=== PATIENT | female | born 2000 | race Caucasian/White ===

== ENCOUNTER 2021-08-20 10:52 | Observation (INO) ==
--- NOTE | 2021-08-15 09:42 | Anesthesiology Consultation ---
Date of Service August 15, 2021 Assessment & Plan (1) Encounter for pre-operative examination: Chart Review Chart Review: Acceptable Risk for Surgery (pending preop Covid testing results ) and Patient NOT seen in Pre Admission Testing - Check test AM DOS Per nursing assessment 08/15/2021, patient denies any recent travel. No known COVID infection in the past 90 days. Patient is not vaccinated for COVID. No known Covid positive exposures or Covid related symptoms. Preop Covid testing scheduled 08/18/21= will await results History Surgery Operation Date: 08/20/21 09:20 Proposed Procedures p Laparoscopic Cholecystectomy, Possible Cholangiogram - Wally Garcia, DO, FACS Height/Weight Height: 5 ft 6 in Weight: 72.575 kg Allergies Allergy/AdvReac Type Severity Reaction Status Date / Time No Known Allergies Allergy Verified 08/15/21 09:18 Medications Home Medications Medication Instructions Recorded Confirmed Last Taken lamotrigine 100 mg tablet 100 mg PO QAM 08/07/21 08/15/21 Unknown Past Medical History Medical History ADHD Anxiety and depression Bipolar disorder Cholelithiasis Past Family History Family History Father Hypertension Mother Diabetes Grandfather Colorectal cancer Past Surgical History Surgical History Family history of reaction to anesthesia MOTHER>SLOW TO WAKE UP No history of previous surgery Social History Smoking Status: Current every day smoker tobacco type: cigarettes Smoking cigarettes per day: 15-20 CIG DAILY *ADVISED Hx Alcohol Use: Yes Alcohol type: beer, wine and hard liquor alcohol intake frequency: a few times a week Hx Substance Use: Yes substance use type: marijuana Last Used Substance Other:: LAST NIGHT *ADVISED
[~2021-08-20 10:52] MED LIST: DEXAMETHASONE SOD INJ 4 MG/ML VIAL ONE; LACTATED RINGER'S 1,000 ML IV SCH; MIDAZOLAM HCL 1 MG/ML 2ML VIAL ONE; ONDANSETRON INJ 2 MG/ML 2 ML VIAL ONE; PROPOFOL IV EMULSION 10 MG/ML 20 ML VIAL IV ONE; ROCURONIUM BROMIDE 10 MG/ML 5 ML VIAL IV ONE; cefOXitin 2,000 MG in DEXTROSE 5% 50 ML IV SCH; fentaNYL citrate 100 MCG/2 ML VIAL ONE
[2021-08-20] MEDS ORDERED: PROPOFOL IV EMULSION 10 MG/ML 20 ML VIAL IV ONE ×2 (11:37→14:34)
[2021-08-20] MEDS ORDERED: fentaNYL citrate 100 MCG/2 ML VIAL ONE ×2 (11:37→14:34)
[2021-08-20] MEDS ORDERED: ONDANSETRON INJ 2 MG/ML 2 ML VIAL ONE ×2 (11:37→14:35)
[2021-08-20] MEDS ORDERED: DEXAMETHASONE SOD INJ 4 MG/ML VIAL ONE ×2 (11:37→14:35)
[2021-08-20] MEDS ORDERED: MIDAZOLAM HCL 1 MG/ML 2ML VIAL ONE ×2 (11:37→14:34)
[2021-08-20] MEDS ORDERED: NEOSTIGMINE METHYLSULFATE 1 MG/ML 10ML VIAL ONE ×2 (11:37→16:45)
[2021-08-20] MEDS ORDERED: GLYCOPYRROLATE 0.2 MG/ML VIAL ONE ×2 (11:37→16:45)
[2021-08-20] MEDS ORDERED: ROCURONIUM BROMIDE 10 MG/ML 5 ML VIAL IV ONE (11:37)
--- NOTE | 2021-08-20 11:39 | History & Physical Bridge Note ---
Date of Service August 20, 2021 History & Physical Bridge Note I have examined the patient, reviewed the History & Physical and in the interval since the performance of the History & Physical I have noted the following changes of clinical significance: no changes noted
[2021-08-20] MEDS ORDERED: BUPIVACAINE 0.5 % 5 MG/1 ML MPF 30ML VIAL ONE (12:14)
[2021-08-20] MEDS ORDERED: ATROPINE SULFATE 0.1 MG/ML 10ML SYR IV PRN (13:45)
[2021-08-20] MEDS ORDERED: ePHEDrine sulfate 50 MG/ML AMP IV PRN (13:45)
[2021-08-20] MEDS ORDERED: ONDANSETRON INJ 2 MG/ML 2 ML VIAL IV PRN ×2 (13:45→15:37)
[2021-08-20] MEDS ORDERED: LIDOCAINE 2% 2 ML VIAL/AMP(20MG/ML) INFIL ONE (14:34)
[2021-08-20] MEDS ORDERED: oxyCODONE/ACETAMINOPHEN 5mg/325mg TAB PO PRN (15:37)
[2021-08-20] MEDS ORDERED: MoRPHine SULFATE 4 MG/ML 1 ML CARP\\VIAL IV PRN (15:37)
[2021-08-20] MEDS ORDERED: MoRPHine SULFATE 2 MG/ML CARP IV PRN (15:37)
[2021-08-20] MEDS ORDERED: SODIUM CHLORIDE 0.9% 1000ML 1,000 ML IV SCH (15:45)
--- NOTE | 2021-08-20 17:04 | Operative Report ---
PG Post Operative Report Pre & Post Diagnosis Operation Date: 08/20/21 08:35 Pre-Op Diagnosis: Cholelithiasis Post-Op Diagnosis: Cholelithiasis, acute on chronic cholecystitis I identified the patient and participated in the time-out.: Yes Procedure Operation Date: 08/20/21 08:35 Actual Procedures p Laparoscopic Cholecystectomy(Not Applicable) - Wally Garcia DO, OBI Surgeon Wally Garcia DO, FACS Mica Layer Garth Frausto Estimated Blood Loss 10 Findings Consistent with Post-Op Diagnosis Significantly inflamed gallbladder. Multiple large stones. Impacted stone at neck of gallbladder with short cystic duct. Dome down technique utilized. Gallbladder opened, the impacted stone was removed in pieces. Gallbladder stapled at infundibulum. ANTONINO drain left in gallbladder fossa. Specimens Gallbladder and contents Anesthesia Type General Complications none Disposition Accompanied Patient To Recovery: No Disposition: Recovery Room Indications 21-year-old female with history of cholelithiasis, plan for laparoscopic cholecystectomy with possible cholangiogram. The risks of the procedure were discussed, all questions were answered, and the patient agreed to proceed with surgery as planned. Description of Procedure The patient was properly identified, consented, and taken to the operating room where she was placed in the supine position. General endotracheal anesthesia was induced. SCDs and a safety belt were placed. Preoperative antibiotics were administered. The patient's abdomen was prepped and draped in the standard sterile fashion. A surgical timeout was performed and all parties were in agreement that this was the correct patient and procedure to be performed and we continued as planned. An incision was made superior and to the left of the umbilicus overlying the rectus muscle and the Veress needle was inserted. Saline drop test confirmed entry into the peritoneum. The abdomen was insufflated with carbon dioxide which the patient tolerated without incident. The abdomen was then entered using the Optiview technique and a 5 mm trocar. The laparoscope was inserted and no damage from initial trocar or Veress needle placement was noted, no gross abnormalities were noted within the 4 quadrants of the abdomen. An 11 mm port was placed in the subxiphoid position and two 5 mm ports were then placed in the right subcostal position. The patient was placed in reverse Trendelenburg position and rotated towards the left. The gallbladder was significantly inflamed with multiple large stones. The omentum was densely adherent to the gallbladder and this was taken down with electrocautery and blunt dissection. Some bleeding from the omentum was controlled with 10 mm clips. The dome of the gallbladder was retracted towards the left upper quadrant and the infundibulum was retracted toward the right lower quadrant revealing Calot's triangle. Peritoneal attachments were taken down with electrocautery and blunt dissection. There was an impacted stone at the neck of the gallbladder and the infundibulum and area around the cystic duct was significantly inflamed. We then utilized a dome down technique to get the gallbladder. The cystic artery was identified, circumferentially dissected, and doubly clipped and divided. We were able to continue the dissection down to the neck of the gallbladder and impacted stone. We were unable to free this from the neck. I then made an incision into the gallbladder and we were able to break up the stone and remove pieces of it through this opening. The cystic duct appeared very short and over concern that we would damage the common bile duct we elected to staple right at the junction of the neck and cystic duct. The 11 mm port was replaced with a 12 mm port in the subxiphoid position. A vasquez loaded 45 mm Endo MOHAN stapler was then used to divide the gallbladder at the junction of the neck and the cystic duct. The gallbladder and several stones were placed in an Endo Catch bag and removed through the subxiphoid port site. The right upper quadrant was irrigated and hemostasis was found to be good. A 10 mm flat ANTONINO drain was then placed in the gallbladder fossa and exited through the right lateral subcostal port. This was secured in place with a 2-0 nylon suture. 5 mm trochars were removed under direct visualization and the abdomen was allowed to collapse. The subxiphoid port site fascia was closed with 0 Vicryl suture utilizing the Tariq-Sandip device prior to the removal of the ports The wound was irrigated, and the skin of all ports was closed with 4-0 Monocryl subcuticular sutures. Dermabond was placed over the wounds. The patient was extubated in the operating room and taken to the PACU where she recovered without apparent incident. All sponge, instrument and needle counts were correct at the conclusion of the procedure. The patient tolerated the procedure well. The physician's customer care assistant was present and scrubbed for the entirety of the case and was essential in positioning the patient, prepping and draping, retraction and exposure, driving the laparoscope, removal of the gallbladder, closure the incisions, and placement of the dressings. I attest to the content of the Intraoperative Record and any orders documented therein. Any exceptions are noted below.
[2021-08-20] MEDS: fentaNYL citrate 100 MCG/2 ML VIAL IV PRN ×2 (17:50→17:56)
--- NOTE | 2021-08-20 18:15 | Anesthesiology Progress Note ---
Date of Service August 20, 2021 Anesthesia Post Procedure Vital Signs Vital Signs: Temp Pulse Pulse Resp BP Pulse Ox 08/20/21 18:10 72 17 161/95 H 94 08/20/21 18:00 65 19 151/78 H 93 08/20/21 17:50 91 H 15 148/61 H 93 08/20/21 17:40 87 16 148/76 H 93 08/20/21 17:30 74 21 148/87 H 99 08/20/21 17:20 36.1 C L 74 11 L 142/82 H 95 08/20/21 11:27 36.6 C 82 18 152/81 H 99 Pain Intensity Abdomen: Pain Intensity: 5 Transfer of Care Handoff Completed per policy Notes Mental Status: alert / awake / arousable and participated in evaluation Patient Amnestic to Procedure: Yes Nausea / Vomiting: adequately controlled Pain: adequately controlled Airway Patency, RR, SpO2: stable & adequate BP & HR: stable & adequate Hydration State: stable & adequate Anesthetic Complications: no major complications apparent
[2021-08-20] MEDS ORDERED: hydrOXYzine HCl 25 MG TAB PO PRN (19:42)
[2021-08-20] MEDS ORDERED: HYDROmorphone INJ 0.5 MG/0.5 ML SYR IV PRN (19:42)
[2021-08-20] MEDS: oxyCODONE/ACETAMINOPHEN 5mg/325mg TAB PO PRN (20:47)
[2021-08-20] MEDS: cefOXitin 2,000 MG in DEXTROSE 5% 50 ML IV SCH (21:26)
[2021-08-20] MEDS: LACTATED RINGER'S 1,000 ML IV SCH (21:28)
[2021-08-21] MEDS: oxyCODONE/ACETAMINOPHEN 5mg/325mg TAB PO PRN ×2 (00:49→05:28)
[2021-08-21] MEDS: cefOXitin 2,000 MG in DEXTROSE 5% 50 ML IV SCH ×2 (02:57→08:53)
[2021-08-21 06:12] LABS: Eosinophils # (auto) 0.02 K/uL (0-0.5); Eosinophils % (auto) 0.2 %; Hematocrit (blood only) 41.8 % (37-47); Hemoglobin 14.1 g/dL (12.0-16.0); Immature Granulocytes # (auto) 0.02 K/uL (0.00-0.02); Immature Granulocytes % (auto) 0.2 %; Lymphocytes # (auto) 1.81 K/uL (1.2-3.4); Mean Corpuscular Hemoglobin 32.3 pg (25-34); Mean Corpuscular Hgb Conc 33.7 g/dL (32-36); Mean Corpuscular Volume 95.9 fL (80-100); Mean Platelet Volume 11.4 fL (7.4-10.4); Monocytes # (auto) 1.18 K/uL (0.11-0.59); Monocytes % (auto) 9.8 %; Neutrophils # (auto) 9.07 K/uL (1.4-6.5); Neutrophils % (auto) 74.8 %; Platelet Count 307 K/uL (130-400); RDW Coefficient of Variation 11.9 % (11.5-14.5); RDW Standard Deviation 41.6 fL (36.4-46.3); Red Blood Count 4.36 M/uL (4.2-5.4)
[2021-08-21 06:43] LABS: Albumin Level 4.1 gm/dl (3.4-5.0); BUN Creatinine Ratio 8.6 (10-20); Bilirubin Direct 0.2 mg/dl (0-0.2); Bilirubin,Total 0.9 mg/dl (0.2-1.0); Calcium 9.1 mg/dl (8.5-10.1); Creatinine Clr Calc Pharmacy 129.6 ml/min; Est GFR (African American) 143.5 ml/min; Est GFR (Non-African American) 123.9 ml/min; Potassium 3.9 mmol/L (3.5-5.1); Total Protein 6.5 gm/dl (6.0-8.3)
--- NOTE | 2021-08-21 07:56 | Surgery Progress Note ---
Date of Service August 21, 2021 Assessment & Plan (1) S/P laparoscopic cholecystectomy: Plan: POD#1 laparoscopic cholecystectomy WBC 12, LFTs are within normal limits. VSS Patient's pain is controlled, not having much pain at incisions, some pain in R shoulder ANTONINO Drain is serosang (~60cc) Will plan on advancing diet this AM If all goes well may consider dispo to home later today. Intraop findings discussed with patient Will need f/u in clinic with Dr. Garcia within 2 weeks Admission and Anticipated Discharge Date Admission Date: August 20, 2021 Supervising Physician Co-Signing Physician Notes Patient seen examined, labs reviewed, agree with above. POD #1 difficult laparoscopic cholecystectomy for significant acute on chronic cholecystitis. Doing well this morning, feels better than she did prior to surgery. The nausea she typically experiences is completely gone. Tolerated breakfast. On exam she is afebrile stable vitals. Abdomen soft, nontender, nondistended. Port sites with Dermabond, no infection. ANTONINO with serosanguineous drainage, nonbilious. Labs unremarkable, specifically LFTs normal. We will advance diet, DC ANTONINO drain, DC to home today. Return precautions given, wound care instructions reviewed, follow-up in 2 weeks. Subjective Patient is feeling well, pain is tolerable and she is feeling much better than yesterday.. Denies nausea. Physical Exam Physical Exam: awake/alert, no distress Constitutional: WD/WN, vitals as above Gastrointestinal (Abdomen): Inspection/Auscultation: + abdominal surgical incision (c/d/i) and + abdominal surgical drain present (serosang); abdomen not distended Percussion/Palpation: abdomen soft; abdomen nontender Results & Data ([facility]) Vital Signs (Past 12 Hours) Vital Signs Temp Pulse Resp BP Pulse Ox 08/21/21 07:32 36.8 C 76 16 144/71 H 96 08/21/21 04:07 37 C 57 L 16 122/71 95 08/20/21 22:44 36.7 C 76 16 116/68 94 08/20/21 21:53 36.6 C 72 20 123/72 94 08/20/21 20:53 36.9 C 70 16 126/75 94 08/20/21 20:16 36.8 C 76 16 137/86 94 PG Care Time/CCT Total # of Minutes Spent Total Time Spent with Patient: Total time spent is greater than 50% in coordination of care (as documented) at patient's floor/unit and/or counseling patient: Coding Level of Care Code None Diagnoses S/P laparoscopic cholecystectomy Z90.49
[2021-08-21] MEDS ORDERED: lamoTRIgine 100 MG TAB PO SCH (09:00)
[2021-08-21] MEDS: LACTATED RINGER'S 1,000 ML IV SCH (11:27)
--- NOTE | 2021-08-26 10:01 | Discharge Summary ---
Date of Service August 21, 2021 Principal Diagnosis Cholelithiasis, chronic cholecystitis Discharge Exam Constitutional WD/WN, vitals as above Gastrointestinal (Abdomen) Inspection/Auscultation: + abdominal surgical incision (clean, dry); abdomen not distended Percussion/Palpation: abdomen soft Discharge Data Allergies Allergy/AdvReac Type Severity Reaction Status Date / Time No Known Allergies Allergy Verified 08/20/21 11:24 Procedures Performed Operation Date: 08/20/21 08:35 Actual Procedures p Laparoscopic Cholecystectomy(Not Applicable) - Wally Garcia DO, FACS Hospital Course (1) S/P laparoscopic cholecystectomy: 21 y/o female with cholelithiasis was taken to the operating room for laparoscopic cholecystectomy. She had severe chronic cholecystitis with stones in the cystic duct. ANTONINO drain was placed and she was transferred to the surgical floor for overnight observation. ANTONINO drainage was serous and LFTs were normal the next morning. She was able to advance diet and tolerate oral analgesics. ANTONINO drain was removed. She was stable for discharge home. Total Time Total Time Spent Total Time Spent (In Minutes): 15 Discharge Plan Discharge Items Patient Disposition: Home - Self-Care Reason For Visit: Cholelithiasis Discharge Diagnosis: laparoscopic cholecystectomy Activity: Per Instructions section Lifting: No more than 10 pounds Bathing Comment: may shower; no soaking in tubs/pools Exercise/Sports: Wait until after follow-up appointment Driving/Machine Use: no driving while taking any narcotics for pain Non-emergency contact: Surgeon Call non-emergency contact if: you have any medication questions, your symptoms worsen, your pain is not controlled, your pain is concerning for you, you have a fever, your temperature is above 101.5, your wound has increased redness, your wound has increased drainage and your wound pain has increased Follow-up/Referrals: Wally Garcia DO, FACS [Physician] - 09/04/21 9:00 am (Please call to schedule follow up in clinic within 2 weeks) Graham Lala MD [Primary Care Provider] - Diet: Regular Addtl Attending Provider Instructions: You may cover the area where you drain was with 4x4 gauze and medical tape. Change dressing daily and as needed until the area is healed and no longer draining. Pending Studies at Discharge: Yes Studies:: surgical pathology Stand-Alone Forms: My [facility] Medications and DC Order Prescriptions: New oxycodone-acetaminophen [Percocet] 5-325 mg tablet 1 - 2 tab PO .q4-6h PRN (Reason: pain, for initial therapy, max 6 tabs per day) Qty: 15 RF: 0 Continued lamotrigine [Lamictal] 100 mg tablet 100 mg PO QAM RF: 0 hydroxyzine HCl 25 mg Tablet 25 mg PO TID PRN (Reason: Anxiety) RF: 0 Discharge Orders: Discharge Order (Routine); Ordered 08/21/21 Ordered By: Asuncion Murphy Admission Data Admit Date/Time: 08/20/21 17:08 Attending Provider: Wally Garcia Admit Provider: Wally Garcia Primary Care Provider: Graham Lala Other Interventions: Discharge Summary Assessment (RN) Last Done: 08/21/21 12:35 Coding Level of Care Code D/C DAY MANAGEMENT <30 MINS Diagnoses S/P laparoscopic cholecystectomy Z90.49
== END 2021-08-21 13:00 | disposition home or self-care (01) ==
LOC: 3N 10:52 → ASU 10:52
DX: K80.12 Calculus of gallbladder with acute and chronic cholecystitis without obstruction; F17.210 Nicotine dependence, cigarettes, uncomplicated